=== PATIENT | male | born 1985 | race Caucasian/White ===

== ENCOUNTER 2016-11-29 16:25 | Emergency (ER) | payer OTHER ==
[~2016-11-29] VITALS: Ht 177.8 cm; Wt 81.8 kg
[2016-11-29 16:31] VITALS: BP 133/80; PULSE 86; RESP 16; O2SAT 97
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
--- NOTE | 2016-11-29 18:15 | DRSVH ---
PROCEDURE: X-RAY RIGHT SHOULDER, MINIMUM TWO VIEWS ([id number]) INDICATIONS: shoulder pain TECHNIQUE: 2 views of the shoulder were acquired. COMPARISON: None. FINDINGS: Bones: No fractures or dislocations. No suspicious bony lesions. Visualized ribs appear intact. Soft tissues: No suspicious soft tissue calcifications. IMPRESSION: No fracture. No osseous lesion. If there are persistent symptoms or clinical suspicion f or pathology, then repeat radiographs or advanced imaging (CT, MRI or bone scan) should be considered for further evaluation. Dictated by: Jacquelin Brooks MD, PhD on 11/29/2016 at 18:14 Approved by: Jacquelin Brooks MD, PhD on 11/29/2016 at 18:14
--- NOTE | 2016-11-29 18:16 | DRSVH ---
PROCEDURE: X-RAY RIGHT WRIST, TWO VIEWS ([id number]) INDICATIONS: wrist pain TECHNIQUE: 4 views of the wrist were acquired. COMPARISON: None. FINDINGS: Bones: No fractures or dislocations. No suspicious bony lesions. Scaphoid view: Small avulsion fracture off the distal and lateral margin of the scaphoid noted. Soft tissues: No suspicious soft tissue calcifications. IMPRESSION: Small distal scaphoid avulsion fracture. Dictated by: Jacquelin Brooks MD, PhD on 11/29/2016 at 18:15 Approved by: Jacquelin Brooks MD, PhD on 11/29/2016 at 18:15
== END 2016-11-29 19:11 | disposition home or self-care (01) ==
LOC: SED 16:25
DX: S62.011A Displaced fracture of distal pole of navicular [scaphoid] bone of right wrist, initial encounter for closed fracture (principal); M25.511 Pain in right shoulder; V03.90XA Pedestrian on foot injured in collision with car, pick-up truck or van, unspecified whether traffic or nontraffic accident, initial encounter; Y93.01 Activity, walking, marching and hiking; Y99.8 Other external cause status; Y92.410 Unspecified street and highway as the place of occurrence of the external cause; F17.200 Nicotine dependence, unspecified, uncomplicated; F15.10 Other stimulant abuse, uncomplicated; F11.10 Opioid abuse, uncomplicated; Z59.0 Homelessness

== ENCOUNTER 2017-02-27 10:03 | Emergency (ER) | payer OTHER ==
[~2017-02-27] VITALS: Ht 180.3 cm; Wt 81.8 kg
[2017-02-27 10:18] VITALS: BP 122/81; PULSE 90; RESP 18; O2SAT 100
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
[2017-02-27] MEDS ORDERED: Buprenorphine 2 mg SL Tablet SL ONE (12:20)
[2017-02-27] MEDS ORDERED: NAPR500T5 PO (13:11)
[2017-02-27 13:23] VITALS: BP 136/76; PULSE 91; RESP 15; O2SAT 100
== END 2017-02-27 13:15 | disposition home or self-care (01) ==
LOC: SED 10:03
DX: S39.012A Strain of muscle, fascia and tendon of lower back, initial encounter (principal); F17.200 Nicotine dependence, unspecified, uncomplicated; Z59.0 Homelessness; F13.10 Sedative, hypnotic or anxiolytic abuse, uncomplicated; X50.0XXA Overexertion from strenuous movement or load, initial encounter; Y93.89 Activity, other specified; Y99.8 Other external cause status; Y92.9 Unspecified place or not applicable
CPT/HCPCS: 96372; 99283; J1885